=== PATIENT | male | born 1955 | race African-American/Black ===

== ENCOUNTER 2022-09-06 16:22 | Emergency (ER) | payer OTHER, BC ==
[2022-09-06 16:55] VITALS: RESP 18; TEMP 98; BMI 23.1
[2022-09-06] MEDS ORDERED: ACETAMINOPHEN 500 MG TABLET (FP) PO ONE (18:52)
[2022-09-06] MEDS ORDERED: DIPHTH,PERTUSS(ACELL),TET 0.5 ML DISP.SYRIN IM ONE ×2 (20:15→20:26)
[2022-09-06] MEDS ORDERED: ACETAMINOPHEN 325 MG TABLET (FP) ONE (20:26)
[2022-09-06 22:26] VITALS: BP 148/68; PULSE 70
== END 2022-09-06 22:26 | disposition home or self-care (01) ==
LOC: JER 16:22
PROC: 3E0234Z Introduction of Serum, Toxoid and Vaccine into Muscle, Percutaneous Approach (ICD-10-PCS; principal; 2022-09-06)
DX: S01.01XA Laceration without foreign body of scalp, initial encounter (principal); R51.9 Headache, unspecified; M25.562 Pain in left knee; W01.0XXA Fall on same level from slipping, tripping and stumbling without subsequent striking against object, initial encounter
CPT/HCPCS: 70450-TC; 72125-TC; 73564-TC-LT-FY; 90471; 90715; 99285-25